=== PATIENT | female | born 1985 | race Caucasian/White ===

== ENCOUNTER 2022-12-30 12:25 | Outpatient (CLI) | payer BC | END 2022-12-30 12:26 | disposition home or self-care (01) | LOC: MADRAD 12:25 | PROVIDERS: ATTEND Family Medicine | DX: R06.02 Shortness of breath (principal) | CPT/HCPCS: 71046 ==

== ENCOUNTER 2024-09-20 12:19 | Outpatient (CLI) | payer BC | END 2024-09-20 12:20 | disposition home or self-care (01) | LOC: MADRAD 12:19 | PROVIDERS: ATTEND Family Medicine | DX: R07.9 Chest pain, unspecified (principal) | CPT/HCPCS: 71046 ==